=== PATIENT | male | born 1990 | race Two or more races ===

== ENCOUNTER 2020-08-15 22:52 | Emergency (ER) | payer MEDICAID, OTHER ==
[~2020-08-15] VITALS: Ht 167.6 cm; Wt 90.7 kg
[2020-08-15] MEDS ORDERED: LIDOCAINE 2% (LOCAL ANESTH.) PF 5ml SDV ONE (23:28)
[2020-08-15] MEDS ORDERED: cefTRIAXone SOD 1,000 MG VL ONE (23:29)
[2020-08-15] MEDS ORDERED: TETANUS-DIPTH-ACEL PERTUSSIS 0.5ML SYR Tdap IM ONE (23:30)
[2020-08-15] MEDS ORDERED: cefTRIAXone W LIDOCAINE 1 GM IM IM ONE (23:30)
[2020-08-16 03:46] VITALS: BP 128/92
[2020-08-16] MEDS ORDERED: NEOMYCIN-BACITRACIN-POLYM UNITDOSE PKG TOP OINT TOP ONE (04:00)
[2020-08-16] MEDS ORDERED: BACITRACIN TOP OINT 1 UD PKG TOP ONE (04:00)
== END 2020-08-16 04:05 | disposition home or self-care (01) ==
LOC: ER 22:52 → EDBD 22:52 → ER 08-16 04:04
DX: S01.01XA Laceration without foreign body of scalp, initial encounter (principal); S09.90XA Unspecified injury of head, initial encounter; S01.112A Laceration without foreign body of left eyelid and periocular area, initial encounter; Y08.89XA Assault by other specified means, initial encounter; Y93.89 Activity, other specified; Y92.89 Other specified places as the place of occurrence of the external cause; Y99.8 Other external cause status
CPT/HCPCS: 12013; 70450; 70486; 72125; 90471; 90715; 96372; 99285; J0696; J2001